=== PATIENT | male | born 1990 | race Caucasian/White ===

== ENCOUNTER 2016-12-05 14:10 | Emergency (ER) | payer SELFPAY ==
[~2016-12-05] VITALS: Ht 182.9 cm; Wt 86.2 kg
[2016-12-05 14:10] VITALS: BP 158/85; PULSE 94; RESP 16; TEMP 98.4; O2SAT 96
--- NOTE | 2016-12-05 14:10 | NUR ---
Pt to bed 07. Dr. Strong at bedside. In full C-spine precautions with hard C-collar and backboard in place.
[2016-12-05] MEDS ORDERED: KETOROLAC TROMETHAMINE 60 MG/2 ML VIAL IM ONE (14:15)
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
--- NOTE | 2016-12-05 14:21 | NUR ---
Officer at bedside for report
--- NOTE | 2016-12-05 14:22 | NUR ---
Bilateral pedal and radial pulses present and strong, sensation present, no numbness or tingling per patient.
--- NOTE | 2016-12-05 14:30 | NUR ---
Dr. Strong at bedside
--- NOTE | 2016-12-05 14:45 | NUR ---
Dr. Strong at bedside for removal of back board. Four person assist in log roll while in strict c-spine precautions- Dr. Strong assessed patient's spine, back board removed and patient's logged rolled back properly.
--- NOTE | 2016-12-05 15:41 | NUR ---
Patient in stable condition, no distress noted at this time. Monitoring
--- NOTE | 2016-12-05 16:15 | NUR ---
ER Physician at bedside. C-spine cleared by . Backboard removed with log roll technique. Moves all extremities before and after backboard removal. Hard collar removed by Dr. Strong.
--- NOTE | 2016-12-05 16:21 | NUR ---
ER MD Strong at bedside discussing plan of care and home care
[2016-12-05 16:29] VITALS: BP 128/63; PULSE 79; RESP 17; TEMP 98.4; O2SAT 96
--- NOTE | 2016-12-05 16:29 | NUR ---
Patient given written and verbal discharge instructions and verbalizes understanding. ER MD Strong discussed with patient the results and treatment provided. Patient in stable condition. ID arm band removed. Rx of motrin given. Patient educated on pain management and to follow up with PMD. Pain Scale 0/10 Opportunity for questions provided and answered.
== END 2016-12-05 16:29 | disposition home or self-care (01) ==
LOC: SED 14:10
DX: S16.1XXA Strain of muscle, fascia and tendon at neck level, initial encounter (principal); R03.0 Elevated blood-pressure reading, without diagnosis of hypertension; V89.2XXA Person injured in unspecified motor-vehicle accident, traffic, initial encounter; Y93.89 Activity, other specified; Y92.89 Other specified places as the place of occurrence of the external cause; Y99.8 Other external cause status
CPT/HCPCS: 72125; 74176; 96372; 99284; J1885